=== PATIENT | male | born 1960 | race Caucasian/White ===

== ENCOUNTER → 2019-03-24 11:44 | Outpatient (CLI) | payer OTHER, SELFPAY ==
--- NOTE | 2019-03-24 11:58 | XR_ITS ---
XR KUB HISTORY: ITS.REASON: LT FLANK PAIN,H/O RENAL CALCULI,URINARY HESITANCY ORDERING PHYSICIAN: Marisol Goodwin APRN PATIENT AGE: 58 years COMPARISON: None FINDINGS: There is a 6 mm calcific density overlying the mid polar region of the right kidney. A 5 mm calcific density is noted to the left of the L4 transverse process consistent with a ureteral calculus. There are multiple pelvic calcifications consistent with phleboliths. Bowel gas pattern is nonspecific. IMPRESSION: 1. Right nephrolithiasis. 2. Suspected 5 mm left ureteral stone at the L4 level
[2019-03-24 12:18] LABS: Basophils % 0.4 % (0.1-2.0); Eosinophils % 0.3 % (0.1-12.0); Hematocrit 46.4 % (42.0-52.0); Hemoglobin 15.1 g/dL (14.1-18.0); Lymphocytes # 0.9 K/mm3 (0.7-4.5); Lymphocytes % 7.8 % (10-50); Mean Corpuscular HGB Conc 32.5 g/dL (31.8-35.4); Mean Corpuscular Hemoglobin 30.1 pg (27.0-31.2); Mean Corpuscular Volume 92.7 fl (80-94); Mean Platelet Volume 7.5 fl (7.4-10.4); Monocytes # 0.5 K/mm3 (0.1-1.0); Monocytes % 4.7 % (1.7-9.3); Neutrophils % 86.8 % (37.0-80.0); Platelet Count 198 K/mm3 (142-424); Red Blood Count 5.01 M/mm3 (4.60-6.20); White Blood Count 11.5 K/mm3 (4.8-10.8)
[2019-03-24 12:20] LABS: MANUAL DIFFERENTIAL MANUAL DIFFERENTIAL (MANUAL DIFF)
[2019-03-24 13:19] LABS: Alanine Aminotransferase 23 U/L (12-78); Albumin Level 3.9 gm/dL (3.4-5.0); Albumin/Globulin Ratio 1.4 (1.1-1.8); Alkaline Phosphatase 77 U/L (46-116); Anion Gap 10.6 mEq/L (5-15); Aspartate Amino Transferase 17 U/L (15-37); Bilirubin,Total 0.5 mg/dL (0.2-1.0); Blood Urea Nitrogen 23 mg/dL (7-18); Calcium 8.9 mg/dL (8.5-10.1); Carbon Dioxide 28 mmol/L (21.0-32.0); Chloride 104 mmol/L (98-107); Creatinine,Serum 1.05 mg/dL (0.70-1.30); Estimated Glomerular Filt Rate 73 ml/min (>60); GFR (African American) 88 ML/MIN (>60); Globulin 2.8 gm/dl (1.3-3.2); Glucose 108 mg/dL (74-106); Potassium 4.6 mmoL/L (3.5-5.1); Sodium 138 mmol/L (136-145); Total Protein,Serum 6.7 gm/dL (6.4-8.2)
[2019-03-24 16:31] LABS: Eosinophils % 1 % (0-3); Lymphocytes % 2 % (10-50); Monocytes % 3 % (2-9); Neutrophils % 93 % (42-76); Platelet Estimate Normal; RBC Morphology Normal; Total Cells Counted 100
== END ==
PROVIDERS: PCP Nurse Practitioner Family; Visit Provider Nurse Practitioner Family
DX: R10.9 Unspecified abdominal pain (principal); R39.11 Hesitancy of micturition; Z87.442 Personal history of urinary calculi
CPT/HCPCS: 36415; 74018; 80053; 85007; 85025

== ENCOUNTER → 2019-04-12 12:02 | Outpatient (CLI) | payer OTHER, SELFPAY ==
--- NOTE | 2019-04-12 12:06 | XR_ITS ---
XR kidney stone ORDERING PHYSICIAN: Dale Guerin MD PATIENT AGE: 58 years COMPARISON: 03/26/2019. FINDINGS: Again seen is the punctate stone overlying the right renal shadow. There is a 2 mm calcification at the lateral left mid abdomen which is not related to the ureter area or the left kidney and could be a small fecalith. There are stable pelvic calcifications suggesting phleboliths. The small left ureteral stone overlying the left L4 transverse process is no longer visualized. Bowel gas pattern, soft tissue outlines and osseous structures are stable. IMPRESSION: Right renal stones. Pelvic phleboliths. Prior left ureteral stone is no longer visualized. 10 mm stable left iliac sclerotic density, possible bone island.
== END ==
PROVIDERS: PCP Nurse Practitioner Family; Visit Provider Urology
DX: N20.0 Calculus of kidney (principal)
CPT/HCPCS: 74018

== ENCOUNTER → 2019-09-20 13:33 | Outpatient (CLI) | payer OTHER, SELFPAY ==
--- NOTE | 2019-09-20 13:37 | XR_ITS ---
PROCEDURE: XR KUB CLINICAL INDICATION: kidney stone Kidney stones follow-up COMPARISON: from 04/12/2019 FINDINGS: There are 2 stones overlying the mid aspect of the right kidney at 3 mm each unchanged. Multiple pelvic phleboliths are present. There is a mild amount of retained colonic feces. There are degenerative changes in the lumbar spine with facet arthritic changes at L4-L5 and S1 with spina bifida occulta of L5. Mild osteoarthritis involves the hips. IMPRESSION: No change right nephrolithiasis Dictated by: Osman Vang MD 09/20/2019 15:33 Electronically signed by Osman Vang MD in [place] 09/20/2019 15:33
== END ==
PROVIDERS: PCP Nurse Practitioner Family; Visit Provider Urology
DX: N20.0 Calculus of kidney (principal)
CPT/HCPCS: 74018

== ENCOUNTER → 2020-03-02 10:28 | Outpatient (CLI) | payer OTHER, SELFPAY ==
[2020-03-02 11:11] LABS: Basophils # 0.1 K/mm3 (0-0.2); Basophils % 0.8 % (0.1-2.0); Eosinophils # 0.2 K/mm3 (0.0-0.4); Eosinophils % 2.3 % (0.1-12.0); Hematocrit 47.3 % (42.0-52.0); Hemoglobin 15.5 g/dL (14.1-18.0); Lymphocytes # 1.7 K/mm3 (0.7-4.5); Lymphocytes % 18.6 % (10-50); Mean Corpuscular HGB Conc 32.9 g/dL (31.8-35.4); Mean Corpuscular Hemoglobin 31.1 pg (27.0-31.2); Mean Corpuscular Volume 94.8 fl (80-94); Mean Platelet Volume 8.1 fl (7.4-10.4); Monocytes # 0.7 K/mm3 (0.1-1.0); Monocytes % 7.7 % (1.7-9.3); Neutrophils # 6.5 K/mm3 (1.8-7.8); Neutrophils % 70.6 % (37.0-80.0); Platelet Count 225 K/mm3 (142-424); Red Blood Count 4.99 M/mm3 (4.60-6.20); Red Cell Distribution Width 13.6 % (11.5-17.5); White Blood Count 9.2 K/mm3 (4.8-10.8)
[2020-03-02 12:44] LABS: Alanine Aminotransferase 18 U/L (12-78); Albumin Level 4.6 g/dl (3.5-5.0); Albumin/Globulin Ratio 1.6 (1.1-1.8); Alkaline Phosphatase 77 U/L (38-126); Amylase 37 U/L (30-110); Anion Gap 9.6 mEq/L (5-15); Aspartate Amino Transferase 25 U/L (17-59); Bilirubin,Total 0.4 mg/dl (0.2-1.3); Blood Urea Nitrogen 28 mg/dl (9-20); Calcium 9.8 mg/dl (8.4-10.2); Carbon Dioxide 31 mmol/L (22.0-30.0); Chloride 99 mmol/L (98-107); Chol/HDL Ratio 3.5 (1-3.5); Cholesterol 152 mg/dl (140-200); Estimated Glomerular Filt Rate 87 ml/min (>60); GFR (African American) 105 ML/MIN (>60); Globulin 2.8 g/dL (1.3-3.2); Glucose 98 mg/dl (74-100); HDL Cholesterol 44 mg/dl (40-60); Lipase 48 U/L (23-300); Magnesium 2.2 mg/dl (1.6-2.3); Potassium 4.6 mmoL/L (3.5-5.1); Sodium 135 mmol/L (136-145); Total Protein,Serum 7.4 g/dl (6.3-8.2); Triglycerides 173 mg/dl (30-150); VLDL Cholesterol 35 mg/dL (0-40)
[2020-03-02 12:55] LABS: Direct LDL Cholesterol 105.79 mg/dL (100-129)
[2020-03-02 12:56] LABS: Troponin I < 0.01 ng/ml (0.00-0.034)
== END ==
PROVIDERS: Visit Provider Nurse Practitioner Family
DX: R07.9 Chest pain, unspecified (principal); R10.13 Epigastric pain; K21.9 Gastro-esophageal reflux disease without esophagitis
CPT/HCPCS: 36415; 80053; 80061; 82150; 83690; 83735; 84484; 85025

== ENCOUNTER → 2020-03-07 07:56 | Outpatient (CLI) | payer OTHER, SELFPAY ==
--- NOTE | 2020-03-07 10:05 | US_ITS ---
PROCEDURE: US ABDOMEN LIMITED CLINICAL INDICATION: DYSPEPSIA Upper abdominal pain, pressure, back pain, reflux [facility] con from 03/26/2019 FINDINGS: PANCREAS: Unremarkable. No obvious mass or abnormal fluid collection. No ductal dilatation LIVER: No focal liver lesions demonstrated. Homogeneous echogenicity. No intrahepatic biliary ductal dilatation evident. There is appropriate direction of blood flow within a non dilated portal vein RIGHT KIDNEY: Suspect a small stone in the mid aspect of the right kidney GALLBLADDER: No gallstones, gallbladder wall thickening, pericholecystic fluid, or biliary dilatation. There does appear to be a small polyp along the anterior wall of the gallbladder at 2-3 mm. IMPRESSION: 1. Small gallbladder polyp otherwise negative gallbladder ultrasound. 2. Right nephrolithiasis without hydronephrosis Dictated by: Osman Vang MD 03/07/2020 12:54 Electronically signed by Osman Vang MD in [place] 03/07/2020 12:54
== END ==
PROVIDERS: PCP Nurse Practitioner Family; Visit Provider Nurse Practitioner Family
DX: R10.13 Epigastric pain (principal)
CPT/HCPCS: 76705

== ENCOUNTER → 2020-03-15 07:12 | Outpatient (CLI) | payer OTHER, SELFPAY ==
--- NOTE | 2020-03-15 07:15 | CA_ITS ---
APPROVED REPORT EXAM: Comprehensive 2D, Doppler, and color-flow Echocardiogram Aviation Ordnance Officer: Cassie Horton RT(R) Ht: 6 ft 6 in Wt: 210lbs BSA: 2.31 BP: 119/88 mmHg Indications: CP, smoking, Palpitations, SALAZAR 2D Dimensions LVOT 2.01 cm (M/F) 1.5-2.5 M-Mode Dimensions RVDd 1.97 cm (0.9-2.6) LVDd 4.40 cm (3.5-5.7) LVDs 3.30 cm (3.5-5.7) IVSd 1.02 cm (0.6-1.1) PWd 0.91 cm (0.6-1.1) EF (Teich) 49.70% FS 25.00% EDV (Teich) 87.70 mL ESV (Teich) 44.10 mL LV Diastology E/A Ratio 1.36 Mitral Valve MV A Velocity 45.00 (40-130 cm/s) Left Ventricle Left atrium is normal size, left ventricle is normal size, there is no concentric left ventricular hypertrophy, visually estimated ejection fraction 55% with no regional wall motion abnormality, diastolic parameters are within normal range. Right Ventricle Right atrium and right ventricular normal size and contractility. Aortic Valve Aortic valve is grossly normal, there is no aortic stenosis or aortic insufficiency. Mitral Valve Mitral valve is grossly normal, there is trace mitral regurgitation. Tricuspid Valve Tricuspid valve is grossly normal, there is mild tricuspid regurgitation, tricuspid regurgitation jet velocity is inadequate for calculation of the right ventricular systolic pressure. Pulmonic Valve Pulmonic valve poorly visualized. Great Vessels Aortic root is normal size. Pericardium No significant pericardial effusion noted. Conclusion 1. Normal left ventricular size, preserved left ventricular systolic function, visually estimated ejection fraction 55% with no regional wall motion abnormality, diastolic parameters are within normal range. 2. Trace mitral and mild tricuspid regurgitation. 3. Inferior vena cava is normal size with normal inspiratory collapse. Electronically signed by : Erick Severino, 03/16/2020 09:51:18
--- NOTE | 2020-03-15 07:22 | NM_ITS ---
APPROVED REPORT Exam: Nuclear Stress Test Indication: burning in his chest..fatigue..short of breath Patient Location: Outpatient Stress Tech: Lanie Michael MA Tech:Chinyere Talamantes INGEQuin RT(R)(N) Ht: 6 ft 6 in Wt: 210 lbs HR: 65 bpm BP: 154/92 mmHg BSA: 2.31 m2 BMI: 24.2 History: burning in his chest..fatigue..short of breath Procedure: Patient exercised on Vinicius protocol 8.30 minutes and sec, resting heart rate 65 bpm, resting blood pressure 154/92 mmHg, with exercise maximum heart rate achived was 148 bpm which is Greater than 85 % of the maximum predicted heart rate and blood pressure was 208/84 mmHg. Patient denied any complaint of chest pain. Patient has Good exercise capacity, achieved 10.1 METs of workload on treadmill, the blood pressure response to exercise was Hypertensive. Electrocardiogram Resting electrocardiogram showed sinus rhythm, with exercise there is less than 1.[address] segment depression noted from the baseline EKG. The EKG portion of the exercise Myoview is negative for ischemia. Cardiac Stress and Resting SPECT Images: Cardiac Stress and Resting SPECT images were obtained using technetium 99m Myoview 32.2 mCi stress and 10.76 mCi at rest. Gated SPECT for analysis of segmental wall motion and calculation of the ejection fraction also done. Cardiac stress and resting SPECT images show a fixed defect involving the inferior wall with normal contracted gated SPECT is likely secondary to soft tissue attenuation, no reversible ischemia seen. Computer derived ejection fraction is 61% with no regional wall motion abnormality, right ventricle is normal size and contractility. Conclusion: 1. The EKG portion of the exercise Myoview is negative for ischemia, patient has good exercise capacity achieved 10.1 mets of workload on treadmill, the blood pressure response to exercise was hypertensive, there was no exercise-induced chest discomfort. 2. No scintigraphic evidence of reversible ischemia seen at this level of exercise, computer derived ejection fraction 61% with no regional wall motion abnormality, right ventricle is normal size and contractility. 3. Likely normal exercise Myoview study. Electronically signed by : Erick Severino, 03/15/2020 15:46:08
--- NOTE | 2020-03-15 09:00 | CA_ITS ---
APPROVED REPORT Exam: Exercise Treadmill Technologist: Lanie Rodriguez, Ht: 6 ft 6 in Wt: 210 lbs BSA: 2.31 m2 Indications: CP/SOA Medical History Medical History: Smoking Medications: Sumatriptan,,,,, Cardiac Risk Factors: Smoking, FHX of CAD Stress Test Details Test: Vinicius HR Resting HR: 69 bpm Max Heart Rate (APMHR): 162 bpm Max HR Achieved: 174 bpm Target HR (85% APMHR): 137 bpm % of APMHR: 107 BP Resting BP: 154/92 mmHg Max BP: 208/84 mmHg ECG Clinical Exercise duration: 08:31 min Highest Stage Achieved: Exercise capacity: 10.1 METs Stress ECG Conclusion exercised 8:30 on Vinicius protocol no symptoms or arrhythmias allowing for motion artifact the ST response to exercise is within normal conclusion: normal GXT, myoview images reported separately Test Summary Stage 3 01:00 14.0 3.4 136 . 208/ 84 . . REST . . . . . . . Sitting REST 05:14 0.0 0.0 69 . 154/ 92 . . Stage 1 01:00 10.0 1.7 82 . . . . Stage 1 02:00 10.0 1.7 96 . . . . Stage 1 03:00 10.0 1.7 102 . 196/ 80 . . Stage 2 01:00 12.0 2.5 112 . . . . Stage 2 02:00 12.0 2.5 121 . . . . Stage 2 03:00 12.0 2.5 124 . . . . Stage 3 01:00 14.0 3.4 136 . 208/ 84 . . Stage 3 . . . . . . . Cardiolite injected Stage 3 02:00 14.0 3.4 . . 208/ 84 . . Stage 3 02:31 14.0 3.4 . . 208/ 84 . Stop exercise at 08:31 RECOVERY 01:00 0.0 0.0 87 . . . . RECOVERY 02:00 0.0 0.0 117 . . . . RECOVERY 03:00 0.0 0.0 113 . 158/ 87 . . RECOVERY 04:00 0.0 0.0 106 . 158/ 87 . . RECOVERY 05:00 0.0 0.0 103 . 158/ 87 . . RECOVERY 05:53 0.0 0.0 103 . 158/ 87 . . Electronically signed by : Erick Severino, 03/15/2020 15:42:33
== END ==
PROVIDERS: PCP Nurse Practitioner Family; Visit Provider Urology
DX: R07.9 Chest pain, unspecified (principal); R00.2 Palpitations; R42 Dizziness and giddiness; R06.00 Dyspnea, unspecified; R60.0 Localized edema; K21.9 Gastro-esophageal reflux disease without esophagitis; F17.200 Nicotine dependence, unspecified, uncomplicated; Z82.49 Family history of ischemic heart disease and other diseases of the circulatory system
CPT/HCPCS: 78452; 93017; 93306; A9502

== ENCOUNTER → 2021-04-20 07:11 | Outpatient (CLI) | payer OTHER, SELFPAY ==
[2021-04-20 07:39] LABS: Basophils # 0.1 K/mm3 (0-0.2); Basophils % 0.4 % (0.1-2.0); Eosinophils # 0.1 K/mm3 (0.0-0.4); Eosinophils % 0.4 % (0.1-12.0); Hematocrit 48.5 % (42.0-52.0); Lymphocytes # 1.8 K/mm3 (0.7-4.5); Lymphocytes % 12.8 % (10-50); Mean Corpuscular HGB Conc 32.9 g/dL (31.8-35.4); Mean Corpuscular Hemoglobin 31.9 pg (27.0-31.2); Mean Corpuscular Volume 96.9 fl (80-94); Mean Platelet Volume 7.6 fl (7.4-10.4); Monocytes # 0.8 K/mm3 (0.1-1.0); Monocytes % 5.8 % (1.7-9.3); Neutrophils # 11.4 K/mm3 (1.8-7.8); Neutrophils % 80.7 % (37.0-80.0); Platelet Count 236 K/mm3 (142-424); Red Blood Count 5.01 M/mm3 (4.60-6.20); Red Cell Distribution Width 14.3 % (11.5-17.5); White Blood Count 14.1 K/mm3 (4.8-10.8)
[2021-04-20 08:39] LABS: Anion Gap 11.4 mEq/L (5-15); Blood Urea Nitrogen 25 mg/dl (9-20); Calcium 9.6 mg/dl (8.4-10.2); Carbon Dioxide 30 mmol/L (22.0-30.0); Chloride 102 mmol/L (98-107); Estimated Glomerular Filt Rate 86 ml/min (>60); GFR (African American) 105 ML/MIN (>60); Glucose 83 mg/dl (74-100); Potassium 4.4 mmoL/L (3.5-5.1); Sodium 139 mmol/L (136-145)
== END ==
PROVIDERS: Visit Provider Surgery
DX: Z01.812 Encounter for preprocedural laboratory examination (principal); Z11.52 Encounter for screening for COVID-19; K40.90 Unilateral inguinal hernia, without obstruction or gangrene, not specified as recurrent
CPT/HCPCS: 36415; 80048; 85025; U0003

== ENCOUNTER 2021-04-23 07:07 | Day surgery (SDC) | payer OTHER, SELFPAY ==
[2021-04-16 17:03] VITALS: BMI 24.3
[2021-04-23] VITALS (10 sets, daily range): BP systolic 112–178; BP diastolic 68–106; PULSE 70–87; RESP 11–20; TEMP 36.7–38; O2SAT 93–99
--- NOTE | 2021-04-23 09:35 | HMH.ANESCL ---
[facility] Anesthesia Checklist - Structural Data Admitted From: Home Planned Operative Procedure/s: r inguinal hernia rpr Consent for Planned Operative Procedure(s) Verified: Yes - Additional verifications Anesthesia Reactions: No Hx Blood Transfusions: No Blood Transfusion Reaction: No - Airway Assessment C-Spine Mobility Assessed: Yes TMJ Mobility Assessed: Yes Dentition: Poor Dentition - Neurological Assessment Level of Consciousness: Awake, Alert, Appropriate - Anesthesia Plan Anesthesia Risk discussed: Yes Anesthesia Plan: Verified ASA Class: II Anesthesia Type: General [facility] History I have reviewed the patient's past medical history: Yes Medical History: Reports:: Gastroesophageal Reflux Disease(GERD), Migraine Denies:: Cancer, Diabetes Mellitus Type 1, Diabetes Mellitus Type 2, Internal Pacemaker, MRSA, Seizures *Have you ever received a pneumonia vaccine?: No *Have you received a flu vaccine this season?: No Other Medical History: Reports: Arthritis. Denies: Blood Transfusion Reaction Anesthesia experience/problems:: none Other Surgeries: Yes: Colonoscopy, Other. No: Pacemaker Amputation: No Fractures: No - *Social History Last grade of school completed: High school graduate Smoking Status: Current every day smoker Tobacco Type: cigarettes # Packs/Day (cigarettes): 1 #Yrs smoked (if former smoker): 30 Alcohol Intake: never Substance Use Type: denies use *Occupational Status:: employed Housing: house Household Members: spouse *Travel in the last 8 weeks: None Family Hx:: Heart Attack, Coronary Artery Disease
--- NOTE | 2021-04-23 10:32 | P.OP_ITS ---
Date of procedure: 04/23/21 Pre-op Diagnosis:: Right inguinal hernia Post-op Diagnosis:: Same Procedure performed:: Open repair of right inguinal hernia with placement of Bard prefix mesh, size large Surgeon:: Wililan Schuster MD MICROFILM OPERATOR:: Liat Steele Anesthesia: GETA Estimated blood loss (mL): 5 Clinical Note:: Patient is a 60-year-old male from [facility] who works in [place] at [employer] a referred by Denise Goodwin for right inguinal hernia. He states that he has had a swelling in the right groin area for about 5 or 6 years. When this initially occurred he felt a pop. Symptoms have been progressive and worsened. He has some mild tenderness. He does a lot of heavy lifting at work. He was found to have a reducible visible right inguinal hernia with no evidence of any hernia on the left. The options were discussed with the patient. He would like to pursue repair as soon as possible. Operative findings:: He is a small to moderate indirect hernia Operative note:: Patient was taken to the operating room. He was given preoperative intravenous antibiotics. In the operating room he was placed in a supine position. General anesthesia was induced. Hurst catheter was placed. Lower abdomen and perineum were prepped and draped in the standard surgical fashion. Oblique incision was made in the right inguinal area superior to landmarks identifying the inguinal canal. Dissection was carried down to subcutaneous tissues and Tashia's fascia using electrocautery. External oblique muscle was cleaned free. External oblique muscle was opened along the length of its fibers. Underlying cord structures were identified. He had very attenuated ilioinguinal nerve. The cord structures were dissected free from the floor of the inguinal canal and encircled with a [place] drain. Dissection was carried out of the cord structures. He was noted to have hernia sac medially and proximally. This was dissected free from the cord structures. It was opened and there was some fatty contents which were easily reduced. The hernia sac was then closed with a running 3-0 Vicryl suture. There was a cord lipoma as well and this was dissected free from the cord and sent as hernia contents. A large sized Bard prefix mesh plug was inserted into the defect near the medial internal ring at the site of the defect. It was secured to the shelving edge of the inguinal ligament and transversalis fascia with several interrupted 2-0 Vicryl sutures. The onlay mesh was then inserted into the inguinal floor. It was secured to Scott's ligament and to the shelving edge of the inguinal ligament with a running 2-0 PDS suture. It was secured superiorly medially to the transversalis fascia with interrupted 2-0 PDS horizontal mattress sutures. The 2 tails of the mesh were secured to 1 another with a couple of 2-0 PDS sutures to reconstruct the internal ring. Cord structures were then returned to the normal anatomic position. Irrigation was performed. There was good hemostasis. Local anesthetic was infiltrated deeply as well as for an inguinal nerve block. Extra oblique muscle was closed over the cord structures with running 2-0 Vicryl suture. Tashia's fascia was closed with running 2-0 Vicryl. Skin was closed with running 3-0 strata fix. Steri-Strips and dressings were applied. Condition: stable Disposition: PACU Specimens:: Hernia contents . Complications:: None immediately apparent
--- NOTE | 2021-04-23 10:40 | HMH.ANESI ---
[facility] Anesthesia Record Part I Intake, IV Amount: 600 Estimated blood loss (mL): 5 Urine output (mL): 0 Blood Pressure: 155/88 SaO2: 93 Pulse Rate: 85 Respiratory Rate: 11 Temperature: 98.1 F Patient is:: Drowsy, Oral/Nasal airway Stable to PACU at:: 10:38
[2021-04-23 11:18] LABS: Microscopic,Cath URINE MICROSCOPIC (MICROSCOPIC)
[2021-04-23 11:23] LABS: Appearance,Urine/Cath CLEAR (Clear); Bilirubin,Cath Negative (Negative); Blood, Urine/Cath TRACE-I (Negative); Color,Urine/Cath YELLOW (Yellow); Glucose,Urine/Cath (UA) Negative (Negative); Ketones,Urine/Cath Negative (Negative); Leukocyte Esterase,Cath Negative (Negative); Nitrate,Cath Negative (Negative); Protein,Urine/Cath Negative (Negative); Specific Gravity, Urine/Cath <= 1.005 (1.005-1.030); Urobilinogen,Cath 0.2 EU/dl (0.2)
--- NOTE | 2021-04-24 15:20 | P.PN_ITS ---
[facility] Anesthesia Record Part II Discharge Time: 11:18 Destination: [facility] PACU nurse assessment reviewed?: Yes Patient Condition:: Good Anesthesia Complications:: None Swallowing reflex intact?: Yes Cyanosis?: No Blood Pressure: 116/72 Pulse Rate: 76 Temperature: 98.0 F Mental Status: Alert & Oriented Pain level:: 0 Nausea and/or vomitting:: None Intake, IV Amount: 1,500
[2021-04-24 15:21] VITALS: BP 116/72; PULSE 76; TEMP 36.7
== END 2021-04-23 11:45 | disposition home or self-care (01) ==
LOC: OR 07:09
PROVIDERS: PCP Nurse Practitioner Family; Visit Provider Surgery
PROC: (CPT 49505; principal; 2021-04-23 09:00)
DX: K40.90 Unilateral inguinal hernia, without obstruction or gangrene, not specified as recurrent (principal)
CPT/HCPCS: 49505; 81001; 96374; J2405

== ENCOUNTER 2021-09-20 16:04 | Emergency (ER) | payer OTHER, SELFPAY ==
[2021-09-20 17:31] VITALS: BP 165/93; PULSE 68; RESP 18; TEMP 36.6; O2SAT 97; BMI 24.5
--- NOTE | 2021-09-20 18:31 | HMH.EDUTC ---
[facility] Clinical Impression: Facial [place] Disposition: Home, Self-Care Condition on Discharge: Good Instructions: Boil Additional Instructions: Keep the affected area clean and dry. Follow up with your regular doctor. Take the antibiotics as directed and apply the topical antibiotics as directed. Apply warm wet compresses to the affected area three or four times per day. GO TO THE ER FOR ANY WORSENING SYMPTOMS Prescriptions: Sulfamethoxazole/Trimethoprim [Bactrim DS tablet] 1 each PO BID 10 Days #20 tab Transmission Status: Received by [facility] Mupirocin [Bactroban 2% Ointment 22gm tube] 1 applicatio TP TID 7 Days #1 gm Transmission Status: Received by [facility] cephALEXin [cephALEXin 500mg capsule] 500 mg PO Q6H 10 Days #40 cap Transmission Status: Received by [facility] Referrals: Marisol Goodwin APRN [Primary Care Provider] - Time of Disposition: 18:38 Medical Decision Making - Medical Records Medical records reviewed: No: I reviewed the patient's medical records. - Juan Luis Inquiry Pt receiving controlled substance: No Vital Signs: 09/20/21 17:31 09/20/21 18:51 Temperature 98 F 98 F Temperature Source Oral Pulse Rate 68 Pulse Rate [Left] 68 Respiratory Rate 18 18 Blood Pressure 165/93 H Blood Pressure [Right Arm] 165/93 H Blood Pressure Mean [Right Arm] 117 02 Sat by Pulse Oximetry 97 Orders (Tests/Meds): ED MEDICATIONS Discontinued Medications Generic Name Dose Route Start Last Admin Trade Name Freq PRN Reason Stop Dose Admin Ceftriaxone Sodium 1 gm 09/20/21 18:06 09/20/21 18:15 Ceftriaxone 1gm Vial IM 09/20/21 18:07 1 gm ONCE ONE Administration Lidocaine HCl 0 ml 09/20/21 18:06 09/20/21 18:15 Lidocaine 1% 5ml Pf Vial IM 09/20/21 18:07 2 ml ONCE ONE Administration ORDERS Category Date Time Status Wound Culture and Gram Stain Stat Micro 09/19/21 18:51 Results [facility] [place] - General Stated complaint: spot on face Time Seen by Provider: 09/20/21 18:31 Mode of Arrival: Ambulatory Source of Information: Patient Limitations: No Limitations Description of Symptoms (Recalled from Triage Doc. by RN): pt c/o a bump on his R cheeck. the area is red and swollen. pt states it has been ongoing x2 weeks. HEENT Symptoms (Recalled from RN notes): Yes (abcess on the R cheek) Resp Symptoms (Recalled from RN notes): No Skin Symptoms (Recalled from RN notes): No MS Symptoms (Recalled from RN notes): No Functional Status (Recalled from RN notes): wnl - History of Present Illness Provider Complaint: He states that he has a swollen red area on the right side of his face. This lesion began about 2 weeks ago. He denies any fever or chills, but states that the site is very tender to touch. He is not diabetic. - Related Data Home Medications Medication Instructions Recorded Confirmed sumatriptan succinate 100 mg tablet 100 mg PO Q2H PRN tab 03/07/20 07/01/21 dexlansoprazole 60 mg 60 mg PO DAILY cap 04/05/20 07/01/21 capsule,biphase delayed release Naproxen Sodium [Aleve 220mg Tab] 220 mg PO NEEDED PRN 04/23/21 07/01/21 Previous Rx's Medication Instructions Recorded Mupirocin [Bactroban 2% Ointment 1 applicatio TP TID 7 Days #1 gm 09/20/21 22gm tube] Sulfamethoxazole/Trimethoprim 1 each PO BID 10 Days #20 tab 09/20/21 [Bactrim DS tablet] cephALEXin [cephALEXin 500mg 500 mg PO Q6H 10 Days #40 cap 09/20/21 capsule] Allergies Allergy/AdvReac Type Severity Reaction Status Date / Time No Known Allergies Allergy Verified 07/01/21 09:50 - Worker's Comp Is this a Worker's Comp case?: No [facility] History - Hepatitis A Screen Drug use history?: No High risk sexual behaviors?: No History of sexually transmitted infection?: No Currently employed?: No Childcare worker?: No Do you have indoor plumbing?: Yes Do you have electricity?: Yes Attestation statement:: Manpreet fuller
[2021-09-20 18:51] VITALS: BP 165/93; PULSE 68; RESP 18; TEMP 36.6
== END 2021-09-20 19:02 | disposition home or self-care (01) ==
PROVIDERS: Emergency Provider Nurse Practitioner Family; PCP Nurse Practitioner Family
DX: L02.01 Cutaneous abscess of face (principal); K21.9 Gastro-esophageal reflux disease without esophagitis; G43.709 Chronic migraine without aura, not intractable, without status migrainosus; F17.210 Nicotine dependence, cigarettes, uncomplicated
CPT/HCPCS: 10060; 87070; 87077; 87186; 87205; 99202; G0463

== ENCOUNTER → 2022-04-17 15:18 | Outpatient (CLI) | payer OTHER, SELFPAY ==
--- NOTE | 2022-04-17 15:23 | XR_ITS ---
FINAL REPORT CLINICAL HISTORY: LT KNEE PAIN FINDINGS: LEFT KNEE Three views of the left knee were obtained. There is no acute fracture or dislocation. Visualized joint spaces are normally aligned. There is no joint effusion. There is a chronic calcification at the tibial tubercle. IMPRESSION: No acute bony abnormality. Reviewed, Interpreted and Dictated by Willian Kaminski III, MD Transcribed by Zoë Ledbetter Authenticated and . [facility]
== END ==
PROVIDERS: PCP Nurse Practitioner Family; Visit Provider Nurse Practitioner Family
DX: M25.562 Pain in left knee (principal)
CPT/HCPCS: 73562

== ENCOUNTER 2022-05-07 01:13 | Emergency (ER) | payer OTHER, SELFPAY ==
[2022-05-07 01:17] VITALS: BP 145/92; PULSE 68; RESP 16; TEMP 36.8; O2SAT 99; BMI 23.1
--- NOTE | 2022-05-07 01:24 | ECG_ITS ---
APPROVED REPORT Exam: Resting ECG HR:74 bpm ECG Measurements Heart Rate 74 AXES NV 162 P 22 QRSd 89 QRS 87 QT 382 T 61 QTc 409 Conclusion SINUS RHYTHM WITH SINUS ARRHYTHMIA NORMAL ECG UNCONFIRMED REPORT Electronically signed by : Ron Aguirre MD 05/07/2022 21:01:32
[2022-05-07 01:38] VITALS: BMI 23.1
--- NOTE | 2022-05-07 01:39 | XR_ITS ---
PROCEDURE INFORMATION: Exam: XR Chest Exam date and time: 05/07/2022 1:49 AM Age: 61 years old Clinical indication: Other: Posterior back/chest pain TECHNIQUE: Imaging protocol: Radiologic exam of the chest. Views: 2 views. COMPARISON: DX XR KUB 09/20/2019 1:46 PM FINDINGS: Lungs: Hyperinflated but clear lungs. Pleural spaces: Unremarkable. No pleural effusion. No pneumothorax. Heart/Mediastinum: Unremarkable. No cardiomegaly. Bones/joints: Unremarkable. IMPRESSION: Hyperinflated but clear lungs. No acute abnormality.
--- NOTE | 2022-05-07 01:43 | CT_ITS ---
PROCEDURE INFORMATION: Exam: CT Thoracic Spine Without Contrast Exam date and time: 05/07/2022 2:02 AM Age: 61 years old Clinical indication: Pain in thoracic spine; Patient HX: Back pain yesterday; Additional info: Back pain with urine incont. TECHNIQUE: Imaging protocol: Computed tomography of the thoracic spine without contrast. Radiation optimization: All CT scans at this facility use at least one of these dose optimization techniques: automated exposure control; mA and/or kV adjustment per patient size (includes targeted exams where dose is matched to clinical indication); or iterative reconstruction. COMPARISON: CT CERVICAL SPINE WO CON 05/07/2022 1:57 AM FINDINGS: Bones/joints: Vertebral body heights are normal throughout. There is no evidence of acute fracture. There is mild costovertebral degenerative change. Discs/Spinal canal/Neural foramina: Mild multilevel degenerative disc disease is noted. Spinal canal and neural foramina are patent. Soft tissues: Paraspinous soft tissues are normal in thickness. Mediastinum: Features of old granulomatous disease are noted in the chest with pulmonary and mediastinal granulomas. Adrenal glands: Normal adrenals. IMPRESSION: Mild thoracic degenerative change. Patent spinal canal. No acute fracture or destructive lesion.
--- NOTE | 2022-05-07 01:43 | CT_ITS ---
PROCEDURE INFORMATION: Exam: CT Cervical Spine Without Contrast Exam date and time: 05/07/2022 1:57 AM Age: 61 years old Clinical indication: Neck pain; Prior surgery; Patient HX: Severe back pain yesterday; Additional info: Back pain with urine incont. TECHNIQUE: Imaging protocol: Computed tomography of the cervical spine without contrast. Radiation optimization: All CT scans at this facility use at least one of these dose optimization techniques: automated exposure control; mA and/or kV adjustment per patient size (includes targeted exams where dose is matched to clinical indication); or iterative reconstruction. COMPARISON: OT TUIS NUC THYROID [id number] 09/06/2015 1:10 PM FINDINGS: Bones/joints: There has been prior anterior discectomy with interbody fusion and plate and screw fixation spanning C4-C7. There is no evidence of hardware failure. No evidence of acute fracture. Discs/Spinal canal/Neural foramina: Interbody bone graft appears well incorporated. There is mild degenerative disc disease at C4-C5 with right uncovertebral hypertrophy and right facet arthropathy. This results in right neural foraminal stenosis. Facet arthropathy is noted bilaterally at C7-T1. No canal or foraminal stenosis at C7-T1. Lungs: Lung apices are normal. Thyroid: Homogeneous thyroid parenchyma. Lymph nodes: Scattered non pathologically enlarged cervical lymph nodes are noted. Soft tissues: Unremarkable. IMPRESSION: No acute cervical spine abnormality. Prior long segment fusion without evidence of hardware failure. There is right neural foraminal stenosis at C4-C5
--- NOTE | 2022-05-07 01:43 | CT_ITS ---
PROCEDURE INFORMATION: Exam: CT Lumbar Spine Without Contrast Exam date and time: 05/07/2022 2:05 AM Age: 61 years old Clinical indication: Low back pain; Additional info: Back pain with urine incont. TECHNIQUE: Imaging protocol: Computed tomography of the lumbar spine without contrast. Radiation optimization: All CT scans at this facility use at least one of these dose optimization techniques: automated exposure control; mA and/or kV adjustment per patient size (includes targeted exams where dose is matched to clinical indication); or iterative reconstruction. COMPARISON: CT THORACIC SPINE WO CON 05/07/2022 2:02 AM FINDINGS: Bones/joints: There are 5 lumbar type vertebral bodies. There is no evidence of acute fracture or destructive lesion. Bilateral sacroiliac osteoarthritis appears symmetric. Discs/Spinal canal/Neural foramina: There is prominent facet arthropathy at L4-L5 with mild L4 on 5 anterolisthesis. Patent neural foramina and spinal canal. There is degenerative disc disease and right facet arthropathy at L5-S1 without canal or foraminal stenosis. Kidneys and ureters: There is a calculus demonstrated in the right proximal ureter with mild right hydronephrosis. Vasculature: Mild calcification noted in the normal caliber abdominal aorta. Soft tissues: Unremarkable. IMPRESSION: 1. Lower lumbar facet arthropathy and degenerative disc disease. No canal or foraminal stenosis. No acute fracture or bony destructive change. 2. There is a proximal ureteral calculus on the right with mild right hydronephrosis.
[2022-05-07 01:47] LABS: Influenza A, PCR Not Detected (NotDetected); Influenza B, PCR Not Detected (NotDetected)
[2022-05-07 01:50] LABS: Basophils # 0.1 K/mm3 (0-0.2); Basophils % 0.9 % (0.1-2.0); Eosinophils # 0.3 K/mm3 (0.0-0.4); Eosinophils % 4.2 % (0.1-12.0); Hematocrit 46.1 % (42.0-52.0); Hemoglobin 15.7 g/dL (14.1-18.0); Lymphocytes # 1.7 K/mm3 (0.7-4.5); Lymphocytes % 26.2 % (10-50); Mean Corpuscular HGB Conc 34.1 g/dL (31.8-35.4); Mean Corpuscular Hemoglobin 32.4 pg (27.0-31.2); Mean Corpuscular Volume 95.1 fl (80-94); Mean Platelet Volume 7.8 fl (7.4-10.4); Monocytes # 0.6 K/mm3 (0.1-1.0); Monocytes % 9.2 % (1.7-9.3); Neutrophils # 3.8 K/mm3 (1.8-7.8); Neutrophils % 59.5 % (37.0-80.0); Platelet Count 187 K/mm3 (142-424); Red Blood Count 4.84 M/mm3 (4.60-6.20); Red Cell Distribution Width 13.2 % (11.5-17.5); White Blood Count 6.4 K/mm3 (4.8-10.8)
[2022-05-07 01:54] LABS: Chloride 101 mmol/L (98-107); Sodium 137 mmol/L (136-145)
[2022-05-07 01:56] LABS: Alanine Aminotransferase 21 U/L (12-78); Amylase 61 U/L (30-110); Aspartate Amino Transferase 34 U/L (17-59); Bilirubin,Unconjugated 0.3 mg/dL (0.0-1.1); Blood Urea Nitrogen 17 mg/dl (9-20); Creatinine Clearance Estimated 126 mL/min (50-200); Estimated Glomerular Filt Rate 99 ml/min (>60); GFR (African American) 119 ML/MIN (>60)
[2022-05-07 01:57] LABS: Albumin Level 4.3 g/dl (3.5-5.0); Alkaline Phosphatase 85 U/L (38-126); Bilirubin,Direct 0.1 mg/dl (0.0-0.4); Bilirubin,Indirect 0.3 mg/dL (0.0-0.9); Bilirubin,Total 0.4 mg/dl (0.2-1.3); Calcium 9.2 mg/dl (8.4-10.2); Carbon Dioxide 32 mmol/L (22.0-30.0); Glucose 129 mg/dl (74-100); Lipase 36 U/L (23-300)
--- NOTE | 2022-05-07 01:57 | CT_ITS ---
PROCEDURE INFORMATION: Exam: CT Abdomen And Pelvis With Contrast Exam date and time: 05/07/2022 2:11 AM Age: 61 years old Clinical indication: Abdominal pain; Patient HX: HX kidney stones TECHNIQUE: Imaging protocol: Computed tomography of the abdomen and pelvis with contrast. Radiation optimization: All CT scans at this facility use at least one of these dose optimization techniques: automated exposure control; mA and/or kV adjustment per patient size (includes targeted exams where dose is matched to clinical indication); or iterative reconstruction. Contrast material: ISOVUE; Contrast volume: 75 ml; Contrast route: IV; COMPARISON: ABDPELWO CT abdomen pelvis wo con 03/26/2019 8:37 PM FINDINGS: Liver: Normal. No mass. Gallbladder and bile ducts: Contracted postprandial gallbladder. Pancreas: Normal. No ductal dilation. Spleen: Normal. No splenomegaly. Adrenal glands: Normal. No mass. Kidneys and ureters: Kidneys enhance symmetrically. There is very mild dilation of the right proximal ureter. An elongate calculus or perhaps 2 adjacent stones in the proximal ureter noted. Stone measures 1.0 x 0.3 x 0.3 cm. There may be residual punctate intrarenal stones versus early calyceal contrast. Stomach and bowel: Postprandial stomach. Normal caliber small bowel. Normal colon. Appendix: Normal appendix is confirmed. Intraperitoneal space: Unremarkable. No free air. No significant fluid collection. Vasculature: Mild aortoiliac calcific atherosclerosis without aneurysm. Lymph nodes: Unremarkable. No enlarged lymph nodes. Urinary bladder: Unremarkable as visualized. Reproductive: Unremarkable as visualized. Bones/joints: There is lumbar degenerative disc and facet disease without canal or significant neural foraminal stenosis. Mild bilateral sacroiliac osteoarthritis. Soft tissues: Changes of prior right inguinal herniorrhaphy. IMPRESSION: There is mild right hydronephrosis caused by a an elongate calculus in the proximal ureter. There may be additional punctate intrarenal stones versus early calyceal contrast on this contrast-enhanced exam. No large residual stones are evident.
[2022-05-07 01:58] LABS: Lactic Acid 1.3 mmol/L (0.7-2.1)
[2022-05-07 02:05] LABS: Microscopic, Urine URINE MICROSCOPIC (MICROSCOPIC)
[2022-05-07 02:08] LABS: Appearance,Urine CLEAR (Clear); Bilirubin,Urine Negative (Negative); Blood, Urine 2+ (Negative); Color,Urine YELLOW (Yellow); Glucose,Urine (UA) Negative (Negative); Ketones,Urine Negative (Negative); Leukocyte Esterase,Urine Negative (Negative); Nitrate,Urine Negative (Negative); PH,Urine 6.5 (5.0-8.5); Protein,Urine Negative (Negative); Specific Gravity, Urine 1.015 (1.005-1.030); Urobilinogen,Urine 0.2 EU/dl (0.2)
[2022-05-07 02:22] LABS: Troponin I < 0.01 ng/ml (0.00-0.034)
[2022-05-07 02:22] LABS: Bacteria,Urine Trace /lpf
[2022-05-07 02:23] LABS: Erythrocyte Sedimentation Rate 10 mm/hr (0-20)
[2022-05-07 02:24] LABS: Coronavirus 19, PCR Detected (NotDetected)
[2022-05-07 02:30] VITALS: BP 167/93; PULSE 70; RESP 15; O2SAT 98
--- NOTE | 2022-05-07 02:45 | PC.NURSE ---
PT AWARE OF BEING POSITIVE FOR COVID. PT PLACED IN [place] PRECAUTIONS. NO COMPLAINTS VOICED. NO ACUTE DISTRESS NOTED.
[2022-05-07 02:48] LABS: Procalcitonin 0.052 ng/mL (0.0-2.0)
--- NOTE | 2022-05-07 03:29 | HMH.EDNVD ---
ED Disposition Clinical Impression: Renal colic on right side, COVID-19 Disposition: Home, Self-Care Condition on Discharge: Good Instructions: DI for Kidney Stones, DI for COVID-19 (Suspected or Confirmed ) Additional Instructions: will refer to urology Prescriptions: Tamsulosin HCl [Flomax 0.4mg capsule] 0.4 mg PO HS #12 cap Transmission Status: Pending to [facility] Referrals: Marisol Goodwin APRN [Primary Care Provider] - - Critical Care Critical Care Time: No Attestation: On 05/07/22, the high probability of a clinically significant, sudden or life threatening deterioration of the following system(s) required my full and direct attention, intervention and personal management. The time I documented below is in addition to time spent performing reported procedures but includes the following listed in this critical care notation. Medical Decision Making - Medical Records Medical records reviewed: Yes: I reviewed the patient's medical records. - Juan Luis Inquiry Pt receiving controlled substance: No Vital Signs: 05/07/22 01:17 05/07/22 02:30 Temperature 98.3 F Temperature Source Oral Pulse Rate 70 Pulse Rate [Left Radial] 68 Respiratory Rate 16 15 Blood Pressure 167/93 H Blood Pressure [Right Arm] 145/92 H Blood Pressure Mean 119 Blood Pressure Mean [Right Arm] 109 Blood Pressure Source [Right Arm] Automatic Cuff Blood Pressure Position [Right Arm] Sitting 02 Sat by Pulse Oximetry 99 98 Oxygen Delivery Method Room Air - Lab Data Lab results reviewed: Yes: I reviewed the patient's lab results. Lab Results 05/07/22 01:30: WBC 6.4, RBC 4.84, Hgb 15.7, Hct 46.1, MCV 95.1 H, MCH 32.4 H, MCHC 34.1, RDW 13.2, Plt Count 187, MPV 7.8, Neut % (Auto) 59.5, Lymph % (Auto) 26.2, [place] % (Auto) 9.2, Eos % (Auto) 4.2, Baso % (Auto) 0.9, Neut # (Auto) 3.8, Lymph # (Auto) 1.7, [place] # (Auto) 0.6, Eos # (Auto) 0.3, Baso # (Auto) 0.1, ESR 10 05/07/22 01:30: Sodium 137, Potassium 4.0, Chloride 101, Carbon Dioxide 32 H, Anion Gap 8.0, BUN 17, Creatinine 0.80, Estimated Creat Clear 126, Estimated GFR 99, Est GFR ( Amer) 119, Glucose 129 H, Calcium 9.2, Total Bilirubin 0.4, Direct Bilirubin 0.1, Conjugated Bilirubin 0.0, Indirect Bilirubin 0.3, Unconjugated Bilirubin 0.3, AST 34, ALT 21, Alkaline Phosphatase 85, Troponin I < 0.01, C-Reactive Protein 6.0 H, Total Protein 7.0, Albumin 4.3, Amylase 61, Lipase 36, Procalcitonin 0.052 05/07/22 01:30: Lactate 1.3 05/07/22 01:39: SARS-CoV-2 (PCR) Detected A, Influenza A Untype (PCR) Not detected, Influenza Type B (PCR) Not detected 05/07/22 01:47: Urine Color Yellow, Urine Appearance Clear, Urine pH 6.5, Ur Specific [place] 1.015, Urine Protein Negative, Urine Glucose (UA) Negative, Urine Ketones Negative, Urine Blood 2+, Urine Nitrate Negative, Urine Bilirubin Negative, Urine Urobilinogen 0.2, Ur Leukocyte Esterase Negative, Urine RBC 5-10, Urine Bacteria Trace Result diagrams: 05/07/22 01:30 05/07/22 01:30 Orders (Tests/Meds): ED MEDICATIONS Generic Name Dose Route Start Last Admin Trade Name Freq PRN Reason Stop Dose Admin Sodium Chloride 1,000 mls @ 999 mls/hr 05/07/22 01:45 05/07/22 01:53 Sod Chlor 0.9% 1000ml Bag IV 05/07/22 02:45 999 mls/hr .Q1H1M ESE Administration Sodium Chloride 1,000 mls @ 999 mls/hr 05/07/22 02:00 05/07/22 02:00 Sod Chlor 0.9% 1000ml Bag IV 05/07/22 03:00 999 mls/hr .Q1H1M ESE Administration Sodium Chloride 10 ml 05/07/22 01:57 Sodium Chloride 0.9% 10ml Flush Syringe IV 06/06/22 01:56 NEEDED PRN Maintain IV Site Discontinued Medications Generic Name Dose Route Start Last Admin Trade Name Freq PRN Reason Stop Dose Admin Iopamidol 75 ml 05/07/22 02:25 05/07/22 02:28 Iopamidol-370 (76%);100ml Bottle IV 05/07/22 02:26 75 ml ONCE ONE Administration Ketorolac Tromethamine 30 mg 05/07/22 03:07 05/07/22 03:09 Ketorolac 30mg/Ml Vial IV 05/07/22 03:08 30
[2022-05-07 03:56] VITALS: BP 160/90; PULSE 70; RESP 18; TEMP 36.8; O2SAT 99
== END 2022-05-07 04:07 | disposition home or self-care (01) ==
PROVIDERS: Emergency Provider Emergency Medicine; PCP Nurse Practitioner Family
DX: U07.1 COVID-19 (principal); N13.2 Hydronephrosis with renal and ureteral calculous obstruction; Z79.899 Other long term (current) drug therapy; K21.9 Gastro-esophageal reflux disease without esophagitis; G43.909 Migraine, unspecified, not intractable, without status migrainosus; Z72.0 Tobacco use
CPT/HCPCS: 71046; 72125; 72128; 72131; 74177; 80048; 80076; 81001; 82150; 83605; 83690; 84145; 84484; 85025; 85651; 86140; 87040; 93005; 96365; 96366; 96375; 99285; C9803; Q9967; U0003; U0005

== ENCOUNTER → 2022-05-13 13:37 | Outpatient (CLI) | payer OTHER, SELFPAY ==
--- NOTE | 2022-05-13 13:41 | XR_ITS ---
FINAL REPORT CLINICAL HISTORY: kidney stone FINDINGS: A single view of the abdomen was obtained. There is a large amount of retained stool within the colon. The bowel gas pattern is otherwise unremarkable. There is a right paraspinal calcification at the level of L3 measuring 1 cm which could represent a ureteral stone. Pelvic calcifications are stable. There is no acute osseous abnormality. IMPRESSION: Large amount of retained stool. Findings could represent a 1 cm ureteral stone. Reviewed, Interpreted and Dictated by Zulema Corey MD Transcribed by Zoë Ledbetter Authenticated and [facility]
== END ==
PROVIDERS: PCP Nurse Practitioner Family; Visit Provider Urology
DX: N20.0 Calculus of kidney (principal)
CPT/HCPCS: 74018

== ENCOUNTER 2022-05-14 21:33 | Emergency (ER) | payer OTHER, SELFPAY ==
[2022-05-14 21:53] VITALS: BP 164/91; PULSE 75; RESP 18; TEMP 36.8; O2SAT 98; BMI 23.0
[2022-05-14 22:00] VITALS: BP 131/74; PULSE 73; O2SAT 98
[2022-05-14 22:05] LABS: Microscopic, Urine URINE MICROSCOPIC (MICROSCOPIC)
[2022-05-14 22:08] LABS: Appearance,Urine CLOUDY (Clear); Blood, Urine 3+ (Negative); Color,Urine BROWN (Yellow); Glucose,Urine (UA) Negative (Negative); Ketones,Urine Negative (Negative); Leukocyte Esterase,Urine Negative (Negative); Nitrate,Urine Negative (Negative); PH,Urine 6.5 (5.0-8.5); Protein,Urine 2+ (Negative); Specific Gravity, Urine >= 1.030 (1.005-1.030)
[2022-05-14 22:12] LABS: Alanine Aminotransferase 17 U/L (12-78); Albumin Level 4.2 g/dl (3.5-5.0); Albumin/Globulin Ratio 1.6 (1.1-1.8); Alkaline Phosphatase 101 U/L (38-126); Anion Gap 7.8 mEq/L (5-15); Aspartate Amino Transferase 36 U/L (17-59); Bilirubin,Total 0.5 mg/dl (0.2-1.3); Blood Urea Nitrogen 23 mg/dl (9-20); Calcium 9.4 mg/dl (8.4-10.2); Carbon Dioxide 29 mmol/L (22.0-30.0); Chloride 104 mmol/L (98-107); Creatinine Clearance Estimated 91 mL/min (50-200); Estimated Glomerular Filt Rate 68 ml/min (>60); GFR (African American) 83 ML/MIN (>60); Globulin 2.7 g/dL (1.3-3.2); Glucose 122 mg/dl (74-100); Potassium 3.8 mmoL/L (3.5-5.1); Sodium 137 mmol/L (136-145); Total Protein,Serum 6.9 g/dl (6.3-8.2)
--- NOTE | 2022-05-14 22:14 | CT_ITS ---
PROCEDURE INFORMATION: Exam: CT Abdomen And Pelvis Without Contrast Exam date and time: 05/14/2022 10:23 PM Age: 61 years old Clinical indication: Condition or disease; Kidney or ureter condition; Calculus (stone) in kidney; Additional info: Kidney stone, worsening pain TECHNIQUE: Imaging protocol: Computed tomography of the abdomen and pelvis without contrast. Radiation optimization: All CT scans at this facility use at least one of these dose optimization techniques: automated exposure control; mA and/or kV adjustment per patient size (includes targeted exams where dose is matched to clinical indication); or iterative reconstruction. COMPARISON: CT ABDOMEN PELVIS W CON 05/07/2022 2:11 AM FINDINGS: Lungs: Dependent atelectasis. Lung bases are negative for dominant mass or airspace consolidation. Punctate calcified granulomas within the lung bases. Heart: The heart is not enlarged. A tiny pericardial effusion or pericardial thickening is present. Minimal coronary artery calcifications. Diaphragm: Sliding hiatal hernia. Liver: Normal. No mass. Gallbladder and bile ducts: Normal. No calcified stones. No ductal dilation. Pancreas: Normal. No ductal dilation. Spleen: Normal. No splenomegaly. Adrenal glands: Normal. No mass. Kidneys and ureters: Previously described 11 x 4 mm calcification or collection of smaller calcifications within the proximal right ureter has migrated to the mid right ureter. There is slight increase in right hydroureteronephrosis to the level of this obstructing calcification. Fluid and inflammation around the right kidney and collecting system compatible with calyceal rupture. Punctate calyceal calcifications elsewhere within the bilateral kidneys. Stomach and bowel: Unremarkable. No obstruction. No mucosal thickening. Appendix: The appendix appears normal. Intraperitoneal space: Unremarkable. No free air. No significant fluid collection. Vasculature: Calcifications within the aorta and its branches. Lymph nodes: Unremarkable. No enlarged lymph nodes. Urinary bladder: Unremarkable as visualized. Reproductive: Unremarkable as visualized. Bones/joints: Degenerative disc and facet disease result in multilevel central and foraminal stenosis within the lower lumbar spine. Chronic grade 1 anterolisthesis of L4 without evidence of pars defect appears to be due to chronic degenerative disc and facet disease. Soft tissues: Small fat containing left inguinal hernia. IMPRESSION: 1. Previously described 11 x 4 mm calcification or collection of smaller calcifications within the proximal right ureter has migrated to the mid right ureter. There is slight increase in right hydroureteronephrosis to the level of this obstructing calcification. Fluid and inflammation around the right kidney and collecting system compatible with calyceal rupture. 2. Punctate calyceal calcifications elsewhere within the bilateral kidneys. 3. Tiny pericardial effusion or pericardial thickening is present. 4. Sliding hiatal hernia. 5. Small fat containing left inguinal hernia. 6. Degenerative disc and facet disease result in multilevel central and foraminal stenosis within the lower lumbar spine. 7. Chronic grade 1 anterolisthesis of L4 without evidence of pars defect appears to be due to chronic degenerative disc and facet disease.
[2022-05-14 22:20] LABS: Bilirubin,Urine 1+ (Negative)
[2022-05-14 22:21] LABS: Bacteria,Urine Trace /lpf; RBC,Urine 50-100 #/hpf (0-3); Squamous Epithelial Cell,Urine Occasional #/hpf (0-5); WBC,Urine Occasional #/hpf (0-3)
[2022-05-14 22:29] LABS: Basophils % 0.4 % (0.1-2.0); Eosinophils # 0.1 K/mm3 (0.0-0.4); Eosinophils % 0.6 % (0.1-12.0); Hematocrit 46.6 % (42.0-52.0); Hemoglobin 14.9 g/dL (14.1-18.0); Lymphocytes # 1.2 K/mm3 (0.7-4.5); Lymphocytes % 10.7 % (10-50); Mean Corpuscular HGB Conc 31.9 g/dL (31.8-35.4); Mean Corpuscular Hemoglobin 32.4 pg (27.0-31.2); Mean Corpuscular Volume 101.4 fl (80-94); Mean Platelet Volume 8.9 fl (7.4-10.4); Monocytes # 0.6 K/mm3 (0.1-1.0); Neutrophils # 9.3 K/mm3 (1.8-7.8); Neutrophils % 83.2 % (37.0-80.0); Platelet Count 240 K/mm3 (142-424); Red Blood Count 4.59 M/mm3 (4.60-6.20); Red Cell Distribution Width 13.7 % (11.5-17.5); White Blood Count 11.2 K/mm3 (4.8-10.8)
--- NOTE | 2022-05-14 22:54 | PC.NURSE ---
at BS speaking with pt about POC.
--- NOTE | 2022-05-14 23:00 | HMH.EDGENADL ---
ED Disposition Clinical Impression: Kidney stone, Hydronephrosis, Ureterolithiasis Disposition: Home, Self-Care Condition on Discharge: Good Instructions: DI for Urinary Tract Infection (UTI) Additional Instructions: At this time was felt you are safe to be discharged home. If new or worsening symptoms please do not hesitate to return the emergency department. Please call and schedule an appointment with your urologist early next week. Please take your medication as prescribed. Prescriptions: Cefdinir [Omnicef 300mg Capsule] 300 mg PO BID #20 cap Transmission Status: Received by [facility] Oxycodone HCl [Oxycodone 5mg tab (IR)] 5 mg PO Q6H PRN #12 tab PRN Reason: Severe Pain Transmission Status: Received by [facility] Referrals: Marisol Goodwin APRN [Primary Care Provider] - Forms: Work/School Release - Critical Care Critical Care Time: No Attestation: On 05/14/22, the high probability of a clinically significant, sudden or life threatening deterioration of the following system(s) required my full and direct attention, intervention and personal management. The time I documented below is in addition to time spent performing reported procedures but includes the following listed in this critical care notation. Medical Decision Making - Juan Luis Inquiry Pt receiving controlled substance: Yes Juan Luis was queried for this patient: Yes Risks and benefits of using a controlled substance: were not discussed with pt by me Vital Signs: 05/14/22 21:53 05/14/22 22:00 05/15/22 00:39 Temperature 98.2 F 98.2 F Temperature Source Oral Oral Pulse Rate 73 72 Pulse Rate [Apical] 75 Respiratory Rate 18 18 Blood Pressure 131/74 128/70 Blood Pressure [Right Arm] 164/91 H Blood Pressure Mean [Right Arm] 115 Blood Pressure Source Automatic Cuff Blood Pressure Source [Right Arm] Automatic Cuff Blood Pressure Position Sitting Blood Pressure Position [Right Arm] Sitting 02 Sat by Pulse Oximetry 98 98 Oxygen Delivery Method Room Air Room Air Room Air - Lab Data Lab results reviewed: Yes: I reviewed the patient's lab results. Lab Results 05/14/22 21:41: Urine Color Brown, Urine Appearance Cloudy, Urine pH 6.5, Ur Specific [place] >= 1.030, Urine Protein 2+, Urine Glucose (UA) Negative, Urine Ketones Negative, Urine Blood 3+, Urine Nitrate Negative, Urine Bilirubin 1+ A, Urine Urobilinogen 1.0, Ur Leukocyte Esterase Negative, Urine RBC 50-100, Urine WBC Occasional, Ur Squamous Epith Cells Occasional, Urine Bacteria Trace 05/14/22 21:50: WBC 11.2 H, RBC 4.59 L, Hgb 14.9, Hct 46.6, MCV 101.4 H, MCH 32.4 H, MCHC 31.9, RDW 13.7, Plt Count 240, MPV 8.9, Neut % (Auto) 83.2 H, Lymph % (Auto) 10.7, [place] % (Auto) 5.0, Eos % (Auto) 0.6, Baso % (Auto) 0.4, Neut # (Auto) 9.3 H, Lymph # (Auto) 1.2, [place] # (Auto) 0.6, Eos # (Auto) 0.1, Baso # (Auto) 0.0 05/14/22 21:50: Sodium 137, Potassium 3.8, Chloride 104, Carbon Dioxide 29, Anion Gap 7.8, BUN 23 H, Creatinine 1.10, Estimated Creat Clear 91, Estimated GFR 68, Est GFR ( Amer) 83, Glucose 122 H, Calcium 9.4, Total Bilirubin 0.5, AST 36, ALT 17, Alkaline Phosphatase 101, Total Protein 6.9, Albumin 4.2, Globulin 2.7, Albumin/Globulin Ratio 1.6 Result diagrams: 05/14/22 21:50 05/14/22 21:50 Orders (Tests/Meds): ED MEDICATIONS Discontinued Medications Generic Name Dose Route Start Last Admin Trade Name April PRN Reason Stop Dose Admin Sodium Chloride 1,000 mls @ 999 mls/hr 05/14/22 22:00 05/14/22 22:02 Sod Chlor 0.9% 1000ml Bag IV 05/14/22 23:00 999 mls/hr .Q1H1M ESE Administration Ceftriaxone Sodium 1 gm/ 50 mls @ 100 mls/hr 05/14/22 23:45 05/14/22 23:57 Sodium Chloride IV 05/28/22 23:44 100 mls/hr Q24H ESE Administration Morphine Sulfate 4 mg 05/14/22 21:57 05/14/22 22:03 Morphine 4mg/Ml Syringe IV 05/14/22 21:58 4 mg ONCE ONE Administration Ondansetron HCl 4 mg 05/14/22 21:57 05/14/22 22:02 Ondanse
--- NOTE | 2022-05-14 23:24 | PC.NURSE ---
Pt ambulatory to bathroom with no assistance.
--- NOTE | 2022-05-14 23:50 | PC.NURSE ---
at speaking with pt about POC
--- NOTE | 2022-05-14 23:55 | PC.NURSE ---
Dr. Yanes s/w Dr. Don re pt results and CT. OK to dispo home if pain under control.
[2022-05-15 00:39] VITALS: BP 128/70; PULSE 72; RESP 18; TEMP 36.8; O2SAT 99
== END 2022-05-15 00:41 | disposition home or self-care (01) ==
PROVIDERS: Emergency Provider Emergency Medicine; PCP Nurse Practitioner Family
DX: N13.2 Hydronephrosis with renal and ureteral calculous obstruction (principal); Z79.899 Other long term (current) drug therapy; K21.9 Gastro-esophageal reflux disease without esophagitis; G43.909 Migraine, unspecified, not intractable, without status migrainosus; M19.90 Unspecified osteoarthritis, unspecified site; Z72.0 Tobacco use
CPT/HCPCS: 74176; 80053; 81001; 85025; 96365; 96367; 96375; 99284; J0696; J2405

== ENCOUNTER → 2022-05-21 16:31 | Outpatient (CLI) | payer OTHER, SELFPAY | PROVIDERS: PCP Nurse Practitioner Family | DX: Z01.812 Encounter for preprocedural laboratory examination (principal); Z20.822 Contact with and (suspected) exposure to COVID-19 | CPT/HCPCS: C9803; U0003; U0005 ==

== ENCOUNTER → 2022-10-18 07:59 | Outpatient (CLI) | payer OTHER, SELFPAY ==
[2022-10-18 08:47] LABS: Chloride 101 mmol/L (98-107)
[2022-10-18 08:48] LABS: Potassium 4.8 mmoL/L (3.5-5.1); Sodium 140 mmol/L (136-145)
[2022-10-18 08:50] LABS: Blood Urea Nitrogen 30 mg/dl (9-20); Estimated Glomerular Filt Rate 86 ml/min (>60); GFR (African American) 104 ML/MIN (>60)
[2022-10-18 08:51] LABS: Alanine Aminotransferase 23 U/L (12-78); Albumin Level 4.4 g/dl (3.5-5.0); Albumin/Globulin Ratio 1.8 (1.1-1.8); Alkaline Phosphatase 72 U/L (38-126); Anion Gap 11.8 mEq/L (5-15); Aspartate Amino Transferase 32 U/L (17-59); Bilirubin,Total 0.8 mg/dl (0.2-1.3); Calcium 9.2 mg/dl (8.4-10.2); Carbon Dioxide 32 mmol/L (22.0-30.0); Chol/HDL Ratio 3.6 (1-3.5); Cholesterol 171 mg/dl (140-200); Globulin 2.4 g/dL (1.3-3.2); Glucose 100 mg/dl (74-100); HDL Cholesterol 47 mg/dl (40-60); Total Protein,Serum 6.8 g/dl (6.3-8.2); Triglycerides 53 mg/dl (30-150); VLDL Cholesterol 11 mg/dL (0-40)
[2022-10-18 09:02] LABS: Direct LDL Cholesterol 101.68 mg/dL (100-129)
[2022-10-18 09:50] LABS: Prostate Specific Ag Screen 0.6 ng/ml (0.0-4.0)
[2022-10-22 18:32] LABS: Testosterone,Free 9.3 pg/mL (6.6-18.1)
== END ==
PROVIDERS: PCP Nurse Practitioner Family; Visit Provider Nurse Practitioner Family
DX: R03.0 Elevated blood-pressure reading, without diagnosis of hypertension (principal); E29.1 Testicular hypofunction; Z13.220 Encounter for screening for lipoid disorders; Z79.899 Other long term (current) drug therapy; Z12.5 Encounter for screening for malignant neoplasm of prostate
CPT/HCPCS: 36415; 80053; 80061; 84402; 84403; G0103

== ENCOUNTER → 2023-02-06 08:21 | Outpatient (CLI) | payer OTHER, SELFPAY ==
--- NOTE | 2023-02-06 | US_ITS ---
FINAL REPORT CLINICAL HISTORY: dizziness, bilateral leg numbness/pain, HTN, ex smoker FINDINGS: COMPLETE ANKLE/BRACHIAL INDICES BILATERAL Complete ankle brachial indices were obtained. The right ALIRIO is 1.2. The left ALIRIO is 1.2. IMPRESSION: ABIs are within normal limits bilaterally. Reviewed, Interpreted and Dictated by Willian Kaminski III, MD Transcribed by Kady Ogden Authenticated and [facility]
--- NOTE | 2023-02-06 | CA_ITS ---
FINAL REPORT CLINICAL HISTORY: HTN, ex smoker quit 6 months after smoking 45 years FINDINGS: The peak systolic velocity of the right common carotid artery is 116 cm/s. The peak systolic velocity of the right internal carotid artery is 67cm/s and end diastolic velocity 24 cm/s. The ICA/CCA ratio is 1.2. A small amount of plaque is present. The right external carotid artery is patent. The right vertebral artery is patent with antegrade flow. The peak systolic velocity of the left common carotid artery is 129 cm/s. The peak systolic velocity of the left internal carotid artery is 85 cm/s and end diastolic velocity 23 cm/s. The ICA/CCA ratio is 1.5. A small amount of plaque is present. The left external carotid artery is patent.The left vertebral artery is patent with antegrade flow. IMPRESSION: Less than 50% bilateral carotid stenoses. Bilateral patent vertebral arteries with antegrade flow. If indicated, CTA or MRA could further evaluate. Reviewed, Interpreted and Dictated by Willian Kaminski III, MD Transcribed by Kady Ogden Authenticated and [facility]
== END ==
PROVIDERS: PCP Nurse Practitioner Family; Visit Provider Nurse Practitioner Family
DX: R20.2 Paresthesia of skin (principal); M79.604 Pain in right leg; M79.605 Pain in left leg; R42 Dizziness and giddiness
CPT/HCPCS: 93880; 93923

== ENCOUNTER → 2023-10-13 12:00 | Outpatient (CLI) | payer OTHER, SELFPAY ==
[2023-10-13 11:46] LABS: Coronavirus 19, PCR Not Detected (NotDetected); Influenza A, PCR Not Detected (NotDetected)
[2023-10-13 12:22] LABS: Influenza B, PCR Detected (NotDetected)
== END ==
LOC: LAB.DROPOF 12:00
PROVIDERS: PCP Nurse Practitioner Family; Visit Provider Nurse Practitioner Family
DX: J06.9 Acute upper respiratory infection, unspecified (principal); J10.1 Influenza due to other identified influenza virus with other respiratory manifestations
CPT/HCPCS: 87636

== ENCOUNTER 2024-03-19 08:05 | Outpatient (CLI) | payer BC, SELFPAY ==
[2024-03-19 08:42] LABS: Basophils # 0.1 K/mm3 (0-0.2); Basophils % 0.8 % (0.1-2.0); Eosinophils # 0.2 K/mm3 (0.0-0.4); Eosinophils % 2.3 % (0.1-12.0); Hematocrit 47.1 % (42.0-52.0); Hemoglobin 15.6 g/dL (14.1-18.0); Lymphocytes # 1.5 K/mm3 (0.7-4.5); Lymphocytes % 21.2 % (10-50); Mean Corpuscular HGB Conc 33.1 g/dL (31.8-35.4); Mean Corpuscular Hemoglobin 31.7 pg (27.0-31.2); Mean Corpuscular Volume 95.5 fl (80-94); Mean Platelet Volume 7.7 fl (7.4-10.4); Monocytes # 0.5 K/mm3 (0.1-1.0); Monocytes % 6.5 % (1.7-9.3); Neutrophils # 4.8 K/mm3 (1.8-7.8); Neutrophils % 69.1 % (37.0-80.0); Platelet Count 226 K/mm3 (142-424); Red Blood Count 4.93 M/mm3 (4.60-6.20); Red Cell Distribution Width 13.8 % (11.5-17.5); White Blood Count 6.9 K/mm3 (4.8-10.8)
[2024-03-19 09:22] LABS: Hemoglobin A1C 5.7 % (4.0-6.0)
[2024-03-19 11:29] LABS: Alanine Aminotransferase 25 U/L (12-78); Albumin Level 4.3 g/dl (3.5-5.0); Albumin/Globulin Ratio 1.7 (1.1-1.8); Alkaline Phosphatase 64 U/L (38-126); Anion Gap 13.3 mEq/L (5-15); Aspartate Amino Transferase 30 U/L (17-59); Bilirubin,Total 0.7 mg/dl (0.2-1.3); Blood Urea Nitrogen 27 mg/dl (9-20); Carbon Dioxide 30 mmol/L (22.0-30.0); Chloride 97 mmol/L (98-107); Chol/HDL Ratio 3.5 (1-3.5); Cholesterol 190 mg/dl (140-200); Estimated Glomerular Filt Rate 68 ml/min (>60); GFR (African American) 82 ML/MIN (>60); Globulin 2.5 g/dL (1.3-3.2); Glucose 103 mg/dl (74-100); HDL Cholesterol 55 mg/dl (40-60); Potassium 4.3 mmoL/L (3.5-5.1); Sodium 136 mmol/L (136-145); Total Protein,Serum 6.8 g/dl (6.3-8.2); Triglycerides 66 mg/dl (30-150); VLDL Cholesterol 13 mg/dL (0-40)
[2024-03-19 11:45] LABS: 25-OH Vitamin D, Total 25.7 ng/mL (30-100)
[2024-03-19 11:51] LABS: Direct LDL Cholesterol 117.24 mg/dL (100-129)
[2024-03-19 11:59] LABS: Prostate Specific Ag Screen 1.1 ng/ml (0.0-4.0)
[2024-03-19 12:18] LABS: Vitamin B12 219 pg/mL (239-931)
[2024-03-19 12:41] LABS: Ferritin 204 ng/ml (17.9-464)
[2024-03-20 07:16] LABS: Testosterone,Total 509 ng/dL (264-916)
== END 2024-03-19 23:59 | disposition home or self-care (01) ==
LOC: LAB 08:07
PROVIDERS: PCP Nurse Practitioner Family; Visit Provider Nurse Practitioner Family
DX: R25.2 Cramp and spasm (principal); R53.1 Weakness; R73.09 Other abnormal glucose; I10 Essential (primary) hypertension; Z12.5 Encounter for screening for malignant neoplasm of prostate; R53.83 Other fatigue; E53.8 Deficiency of other specified B group vitamins
CPT/HCPCS: 36415; 80053; 80061; 82306; 82607; 82728; 83036; 83735; 84403; 85025; G0103

== ENCOUNTER 2024-04-08 06:06 | Outpatient (CLI) | payer SELFPAY ==
--- NOTE | 2024-04-08 06:26 | CT_ITS ---
APPROVED REPORT Signal Operator Technical: CLINICAL INDICATION Risk stratification TECHNIQUE Image Acquisition: A 128 slice MDCT scanner (Choose Digitala View) was used for data acquisition. A noncontrast coronary calcium scan was performed. A CT attenuation threshold of 130 Hounsfield units (HU) was used for the detection of calcium in contiguous voxels of 1 sq mm in area to be counted as individual lesions. A tube voltage of 120 KVp was used. The patient received no medications prior to the coronary calcium CT. Image Reconstruction Transaxial images were reconstructed at 0.67 mm slide thickness. Data was reviewed interactively on an advanced workstation capable of 2 and 3-dimensional displays in all conventional reconstruction formats, including multiplanar reformations, maximum intensity projections, curved multiplanar reformations, and volume rendered reconstructions. When applicable, selected routine images describing the relevant coronary anatomy and pathology were saved and sent to PACS. Complications None Technical Quality Overall image quality was good. Total DLP (Dose-Length Product) is 179.9 mGy-cm. The reported value represents the total of one or more individual components during the CT acquisition of this date and at this time, and as such, the same value may appear in more than one CT report depending on the interpreting/reporting physicians. COMPARISON None FINDINGS CT Coronary Calcium Scoring LMA (Left Main Artery) = 0 LAD (Left Anterior Descending) = 61 LCX (Left Coronary Circumflex) = 0 RCA (Right Coronary Artery) = 0 Total Calcium Score = 61 using the AJ-130 method. There is no identifiable calcification in the aortic valve, mitral annulus or mitral valve, pericardium, or myocardium. IMPRESSION -Coronary artery calcification is present. -Total Calcium Score (Agatston Score) = 61 using the AJ-130 method. -The observed calcium score of 61 is at 54th percentile for subjects of the same age, sex, and race/ethnicity. The interpretation of the calcium heart score is based on the following continuum*: 0 = no calcified plaque detected (risk of coronary artery disease is very low ??? less than 5%) 1-10 = calcium detected in extremely minimal levels (risk of coronary diseases is still low ??? less than 10%) 11-100 = mild levels of plaque detected with certainty (mild or minimal narrowing of heart arteries is likely) 101-400 = definite,at least moderate levels of plaque detected (relatively high risk of a heart attack within 3-5 years) >401-999 = extensive levels of plaque detected (high risk of heart attack, high levels of vascular disease are present, high likelihood of at least one significant coronary narrowing) *The calcium heart score quantifies the burden of coronary calcification/plaque in the coronary arteries. The calcium heart score does not evaluate the presence or the burden of non-calcified (i.e. soft) plaque. The coronary and cardiac findings of this Coronary Calcium CT were reviewed, reported, and signed by Syed Kaye MD ([employer] Process Engineer). Conclusion Electronically signed by : Ina Kaye MD 04/11/2024 11:52:54
== END 2024-04-08 23:59 | disposition home or self-care (01) ==
LOC: RAD 06:06
PROVIDERS: PCP Nurse Practitioner Family; Visit Provider Nurse Practitioner Family
DX: Z13.6 Encounter for screening for cardiovascular disorders (principal)
CPT/HCPCS: 75571

== ENCOUNTER 2024-07-13 16:38 | Outpatient (CLI) | payer BC, SELFPAY ==
--- NOTE | 2024-07-13 16:42 | XR_ITS ---
FINAL REPORT CLINICAL HISTORY: lumbago FINDINGS: No fracture is identified. There is grade 1 spondylolisthesis of L4 on 5. There is minimal retrolisthesis of L2 on 3. Moderate facet arthropathy is identified. There is advanced degenerative disc disease of the lumbosacral junction. IMPRESSION: Advanced degenerative disc disease. Reviewed, Interpreted and Dictated by Yonathan Davila MD Transcribed by Kady Ogden Authenticated and [facility]
== END 2024-07-13 23:59 | disposition home or self-care (01) ==
LOC: RAD 16:39
PROVIDERS: PCP Nurse Practitioner Family; Visit Provider Nurse Practitioner Family
DX: M51.36 Other intervertebral disc degeneration, lumbar region (principal); M54.50 Low back pain, unspecified
CPT/HCPCS: 72100

== ENCOUNTER 2024-08-02 16:00 | Outpatient (RCR) | payer BC, SELFPAY | END 2024-09-06 13:48 | disposition home or self-care (01) | LOC: PT 16:00 | PROVIDERS: Visit Provider Nurse Practitioner Family | DX: M51.360 Other intervertebral disc degeneration, lumbar region with discogenic back pain only (principal) | CPT/HCPCS: 97163 ==

== ENCOUNTER 2024-09-12 16:28 | Outpatient (CLI) | payer BC, SELFPAY ==
--- NOTE | 2024-09-12 16:34 | XR_ITS ---
PROCEDURE INFORMATION: Exam: XR Left Wrist Exam date and time: 09/12/2024 4:36 PM Age: 63 years old Clinical indication: Pain; Wrist; Left; Additional info: Left wrist pain, injury TECHNIQUE: Imaging protocol: Radiologic exam of the left wrist. Views: 3 or more views. COMPARISON: No relevant prior studies available. FINDINGS: Bones/joints: Normal. Soft tissues: Normal. IMPRESSION: No acute findings.
== END 2024-09-12 23:59 | disposition home or self-care (01) ==
LOC: RAD 16:29
PROVIDERS: PCP Nurse Practitioner Family; Visit Provider Nurse Practitioner Family
DX: M25.532 Pain in left wrist (principal)
CPT/HCPCS: 73110

== ENCOUNTER 2025-03-10 11:30 | Outpatient (CLI) | payer BC, SELFPAY ==
[2025-03-10 12:26] LABS: Basophils % 0.5 % (0.1-2.0); Eosinophils % 0.5 % (0.1-12.0); Hematocrit 46.9 % (42.0-52.0); Hemoglobin 15.9 g/dL (14.1-18.0); Immature Granulocytes # 0.02 10^3uL; Immature Granulocytes % 0.3 %; Lymphocytes # 1.2 K/mm3 (0.7-4.5); Lymphocytes % 17.6 % (10-50); Mean Corpuscular HGB Conc 33.9 g/dL (31.8-35.4); Mean Corpuscular Hemoglobin 31.5 pg (27.0-31.2); Mean Corpuscular Volume 93.1 fl (80-94); Mean Platelet Volume 9.6 fl (7.4-10.4); Monocytes # 0.5 K/mm3 (0.1-1.0); Neutrophils # 4.8 K/mm3 (1.8-7.8); Neutrophils % 73.1 % (37.0-80.0); Nucleated Red Blood Cells # 0 10^3/uL; Nucleated Red Blood Cells % 0 %; Platelet Count 269 K/mm3 (142-424); Red Blood Count 5.04 M/mm3 (4.60-6.20); Red Cell Distribution Width-SD 44.2 fL; White Blood Count 6.5 K/mm3 (4.8-10.8)
[2025-03-10 12:53] LABS: Alanine Aminotransferase 22 U/L (12-78); Alkaline Phosphatase 59 U/L (38-126); Anion Gap 11.1 mEq/L (5-15); Aspartate Amino Transferase 29 U/L (17-59); Bilirubin,Total 0.9 mg/dl (0.2-1.3); Blood Urea Nitrogen 27 mg/dl (9-20); Calcium 9.9 mg/dl (8.4-10.2); Carbon Dioxide 30 mmol/L (22.0-30.0); Chloride 98 mmol/L (98-107); Chol/HDL Ratio 4.1 (1-3.5); Cholesterol 154 mg/dl (140-200); Estimated Glomerular Filt Rate 68 ml/min (>60); GFR (African American) 82 ML/MIN (>60); Globulin 2.5 g/dL (1.3-3.2); Glucose 99 mg/dl (74-100); HDL Cholesterol 38 mg/dl (40-60); Magnesium 2.2 mg/dl (1.6-2.3); Potassium 5.1 mmoL/L (3.5-5.1); Sodium 134 mmol/L (136-145); Total Protein,Serum 7.5 g/dl (6.3-8.2); Triglycerides 101 mg/dl (30-150); VLDL Cholesterol 20 mg/dL (0-40)
[2025-03-10 13:04] LABS: Direct LDL Cholesterol 94.15 mg/dL (100-129)
[2025-03-10 13:11] LABS: 25-OH Vitamin D, Total 42.2 ng/mL (30-100)
[2025-03-10 13:23] LABS: Thyroid Stimulating Hormone 1.58 uIU/mL (0.465-4.68)
[2025-03-10 13:42] LABS: Vitamin B12 314 pg/mL (239-931)
[2025-03-10 13:55] LABS: Hemoglobin A1C 5.4 % (4.0-6.0)
[2025-03-12 14:29] LABS: H. pylori Breath Test Negative (Negative)
== END 2025-03-10 23:59 | disposition home or self-care (01) ==
LOC: LAB 11:31
PROVIDERS: PCP Nurse Practitioner Family; Visit Provider Nurse Practitioner Family
DX: R73.03 Prediabetes (principal); R79.89 Other specified abnormal findings of blood chemistry; K59.00 Constipation, unspecified; I49.9 Cardiac arrhythmia, unspecified; I10 Essential (primary) hypertension; R10.13 Epigastric pain
CPT/HCPCS: 36415; 80053; 80061; 82306; 82607; 83013; 83036; 83735; 84443; 85025; 93225; 93227

== ENCOUNTER 2025-03-16 08:54 | Outpatient (CLI) | payer BC, SELFPAY ==
--- NOTE | 2025-03-16 09:30 | US_ITS ---
FINAL REPORT CLINICAL HISTORY: dyspepsia COMPARISON: None FINDINGS: Sonographic images of the right upper quadrant were obtained. The pancreas is partially obscured.The liver has an unremarkable appearance. A polyp is noted in the gallbladder, 3 mm in size. There is no evidence of biliary ductal dilatation.The common duct measures 3 mm. Limited images of the right kidney are unremarkable. IMPRESSION: Gallbladder polyp, as described, without evidence of biliary ductal dilatation. Reviewed, Interpreted and Dictated by Cristhian Perez MD Transcribed by Marian Blanco Authenticated and [facility]
== END 2025-03-16 23:59 | disposition home or self-care (01) ==
PROVIDERS: PCP Nurse Practitioner Family; Visit Provider Nurse Practitioner Family
DX: K82.4 Cholesterolosis of gallbladder (principal)
CPT/HCPCS: 76705

== ENCOUNTER 2025-03-23 10:44 | Outpatient (CLI) | payer BC, SELFPAY ==
--- NOTE | 2025-03-23 11:00 | CT_ITS ---
FINAL REPORT TECHNIQUE: Thin section axial images were obtained through the lungs using a low-dose technique per lung cancer screening protocol. Reconstruction images were obtained using the axial data. Exam was performed using dose reduction technique. This study was performed with techniques to keep radiation doses as low as reasonably achievable (ALARA). Individualized dose reduction techniques using automated exposure control or adjustment of mA and/or kV according to the patient's size were employed. CLINICAL HISTORY: lung cancer screening PREVIOUS SMOKER, QUIT 2 YEARS AGO, 1 PPD X 35 YEARS. CURRENTLY VAPING FOR 2 YEARS COMPARISON: None FINDINGS: CTDLvol: 2.90 DLP: 120.63 Former smoker, quit 2 years ago, current vaper 35 pack year history Lungs: No acute pulmonary abnormality. No suspicious nodules. There is evidence of prior granulomatous disease. Lymph nodes: No thoracic lymphadenopathy. Mediastinum: Heart size is normal. Pleura/pericardium: No pleural or pericardial effusion. Other: No acute abnormality in the upper abdomen. IMPRESSION: No suspicious pulmonary nodule or mass. Lung RADS: 1 Recommendation: 12-month follow-up LDCT. Reviewed, Interpreted and Dictated by Zulema Corey MD Transcribed by Marian Blanco Authenticated and [facility]
== END 2025-03-23 23:59 | disposition home or self-care (01) ==
LOC: RAD 10:44
PROVIDERS: PCP Nurse Practitioner Family; Visit Provider Nurse Practitioner Family
DX: Z12.2 Encounter for screening for malignant neoplasm of respiratory organs (principal); Z72.0 Tobacco use
CPT/HCPCS: 71271

== ENCOUNTER 2025-05-29 11:27 | Day surgery (SDC) | payer BC, SELFPAY ==
[2025-05-29 11:57] VITALS: BMI 24.7
[2025-05-29] MEDS: LACTATED RINGERS 1000ML 1,000 ML 50 ML IV (12:00)
[2025-05-29 12:05] VITALS: BP 152/74; PULSE 93; RESP 17; TEMP 36.3; O2SAT 98
--- NOTE | 2025-05-29 12:34 | P.PNANES_ITS ---
[facility] Disclaimer: The information contained in this section may have been updated after the patient was seen, as this information can be updated by other users. Medical History Acute bronchitis COVID-19 Renal colic on right side Facial abscess Family history of ischemic heart disease Edema of lower extremity Dizziness Palpitation Tobacco dependence syndrome Dyspnea Chest pain Nephrolithiasis Left ureteral calculus Surgical History (Updated 05/29/25 @ 12:02 by June Khan RN) History of neck surgery H/O vasectomy Family History Father Family history of myocardial infarction Lung cancer Family history of diabetes mellitus type II Social History Smoking Status: Current every day smoker tobacco type: e-cigarettes alcohol intake: never substance use type: marijuana current occupational status: retired Travel in the last 8 weeks?: None household members: spouse housing: house current occupation: [employer] caffeine: Yes Have you lived/traveled outside [place] in past 30 days?: No Contact w/someone who lives/traveled outside [place] past 30 days?: No Exposure to someone with infectious disease in past 14 days?: No Do you have a fever (greater than 100.4 F or 38 C)?: No Have you tested positive for COVID-19?: No Exposed to someone with COVID-19 in past 14 days?: No Do you have a sore throat?: No Do you have a cough?: No Do you have any weakness?: No Do you have any diarrhea?: No Are you experiencing any unusual bleeding?: No Do you have any muscle aches/pain?: No Do you have any abdominal pain?: No Are you experiencing loss of taste or smell?: No [facility] Anesthesia Checklist Patient Identification Patient Identification: Arm Band Structural Data Admitted From: Home Planned Operative Procedure/s: EGD/Colonoscopy Consent for Planned Operative Procedure(s) Verified: Yes Verified Documents: Surgical Consent and History and Physical NPO Status Verified Time NPO: 00:00 Additional verifications Anesthesia Reactions: No Hx Blood Transfusions: No Blood Transfusion Reaction: No Airway Assessment Mallampati Score:: Class II C-Spine Mobility Assessed: Yes TMJ Mobility Assessed: Yes Dentition: Good Dentition Neurological Assessment Level of Consciousness: Awake, Alert and Appropriate Anesthesia Plan Anesthesia Risk discussed: Yes Anesthesia Plan: Verified ASA Class: II Anesthesia Type: MAC
--- NOTE | 2025-05-29 12:48 | P.HP_ITS ---
History of Present Illness *Admission Date: 05/29/25 *History of present illness: Mr. Rios is a 64-year-old gentleman who is here for diagnostic EGD and screening colonoscopy. The patient has had chronic GERD, belching and some bloating for upper endoscopy. His last colonoscopy was 14 years ago and he is here for screening colonoscopy as well. The examination is deemed medically necessary for diagnostic EGD and screening colonoscopy. The patient has been seen, interviewed and examined prior to the procedure by both myself and the anesthesia provider. [facility] Disclaimer: The information contained in this section may have been updated after the patient was seen, as this information can be updated by other users. Medical History (Updated 05/29/25 @ 13:41 by Toño Martínez II, MD) Acute bronchitis COVID-19 Renal colic on right side Facial abscess Family history of ischemic heart disease Edema of lower extremity Dizziness Palpitation Tobacco dependence syndrome Dyspnea Chest pain Nephrolithiasis Left ureteral calculus Surgical History (Updated 05/29/25 @ 12:02 by June Khan RN) History of neck surgery H/O vasectomy Family History Father Family history of myocardial infarction Lung cancer Family history of diabetes mellitus type II Social History Smoking Status: Current every day smoker tobacco type: e-cigarettes alcohol intake: never substance use type: marijuana current occupational status: retired Travel in the last 8 weeks?: None household members: spouse housing: house current occupation: [employer] caffeine: Yes Have you lived/traveled outside [place] in past 30 days?: No Contact w/someone who lives/traveled outside [place] past 30 days?: No Exposure to someone with infectious disease in past 14 days?: No Do you have a fever (greater than 100.4 F or 38 C)?: No Have you tested positive for COVID-19?: No Exposed to someone with COVID-19 in past 14 days?: No Do you have a sore throat?: No Do you have a cough?: No Do you have any weakness?: No Do you have any diarrhea?: No Are you experiencing any unusual bleeding?: No Do you have any muscle aches/pain?: No Do you have any abdominal pain?: No Are you experiencing loss of taste or smell?: No Other Medical History Have you received the Flu Vaccine for this season: No Have you received the Pneumonia Vaccine: No Review of Systems Review of Systems Review of systems (narrative): Negative *Cardiovascular Comments: Negative *Gastrointestinal Comments: Negative *Genitourinary Comments: Negative *Musculoskeletal Comments: Negative *Neurologic Comments: Negative Meds Home Medications and Allergies Home Medications ?Medication ?Instructions ?Recorded ?Confirmed ?Type desvenlafaxine succinate 25 mg 25 mg PO DAILY #30 tabs 03/10/25 05/29/25 Rx tablet,extended release 24 hr (Pristiq) lisinopril 20 mg tablet 20 mg PO .morning 03/10/25 0 05/29/25 History lisinopril 20 1 tab PO .evening 03/10/25 0 05/29/25 History mg-hydrochlorothiazide 12.5 mg tablet tamsulosin 0.4 mg capsule (Flomax) 0.4 mg PO DAILY #90 caps 03/10/25 05/29/25 Rx esomeprazole magnesium 40 mg 40 mg PO DAILY 05/25/25 0 05/29/25 History capsule,delayed release (Nexium) New Prescriptions to Start Prescriptions: Allergies Allergy/AdvReac Type Severity Reaction Status Date / Time No Known Allergies Allergy Verified 05/29/25 12:02 Exam Data for Last 24 hours Vital signs and Labs for Last 24 Hours: Temp Pulse Resp BP Pulse Ox O2 Del Method 97.3 F L 93 H 17 152/74 H 98 Room Air 05/29/25 12:05 05/29/25 12:05 05/29/25 12:05 05/29/25 12:05 05/29/25 12:05 05/29/25 12:05 I & O for Last 24 hours: Intake & Output 05/26/25 05/27/25 05/28/25 05/29/25 23:59 23:59 23:59 23:59 Weight 214 lb *Routine HEENT Exam Head: Present normocephalic Eye: Present EOMI and PERRL ENT: Present mucous membranes moist *Routine Neck Exam Neck: Present supple *Routine Respiratory Exam Respiratory: Present CTA bilaterally *Routine Cardiovascular Exam Cardiovascular: Present RRR *Routine Abdominal Exam Abdominal: Present soft and normoactive bowel sounds; Absent tenderness *Routine Rectal Exam Rectal:: deferred *Routine Genitalia Exam Genitalia:: deferred *Routine Extremities Exam Extremities: Absent cyanosis, clubbing or edema *Routine Skin Exam Skin: Present warm; Absent rash *Routine Neurological Exam Neurological: Present alert and oriented X3 Assessment and Plan *Assessment and plan (1) Screening for colon cancer: Status: Acute Category: Medical Code(s): Z12.11 - Encounter for screening for malignant neoplasm of colon (2) Hx of colonic polyps: Status: Acute Category: Medical Code(s): Z86.0100 - Personal history of colon polyps, unspecified (3) GERD (gastroesophageal reflux disease): Status: Acute Category: Medical Code(s): K21.9 - Gastro-esophageal reflux disease without esophagitis (4) Belching: Status: Acute Category: Medical Code(s): R14.2 - Eructation (5) Personal history of colon polyps, unspecified: Status: Acute Category: Medical Code(s): Z86.0100 - Personal history of colon polyps, unspecified Plan A/P: 1. Chronic GERD/belching for upper endoscopy and screening for colonoscopy is the preprocedural diagnosis. The patient's last colonoscopy was 14 years ago and he had a couple of benign polyps (unspecified) removed the patient will be anesthetized/sedated using MAC sedation. The patient has been seen and examined. Cardiac and lung assessment prior to the examination is stable. Proceed with planned diagnostic EGD and screening colonoscopy.
--- NOTE | 2025-05-29 13:42 | HMH.PROCNOTE ---
[facility] Procedure Note Date: 05/29/25 Time: 13:47 Procedure Note:: Upper Endoscopy Procedure Report: Esophagogastroduodenoscopy with cold biopsies Endoscopost: oTño Martínez II, MD Referring Physician: MARIANA Ledezma Date of Procedure: May 29, 2025 Equipment: Olympus [id number] standard upper endoscope Sedation: MAC sedation Indications: Mr. Rios is a 64-year-old gentleman with chronic GERD who is here for diagnostic EGD. The patient does have moderate belching and some bloating. He has been on Nexium and has been on acid reflux medications for 15 to 20 years. He did have anterior cervical neck surgery. He reports no dysphagia or globus sensation. This is his first upper endoscopy. Procedure: Prior to the procedure, a history and physical exam was performed, and patient's medications and allergies were reviewed. The risks, benefits and alternatives of the sedation and procedure were discussed with the patient. All questions were answered and informed consent was obtained. The patient was brought to the procedure room. Patient identification and proposed procedure were verified by the physician and the nurse. The patient was placed in a left lateral decubitus position and the scope was passed under direct vision. Throughout the procedure, the patient's blood pressure, pulse, and oxygen saturations were monitored continuously. The upper GI endoscopy was accomplished without difficulty. The patient tolerated the procedure well. Findings: The scope was passed directly into the upper esophagus and advanced to the third portion of the duodenum. The post bulbar duodenum, ampulla and duodenal bulb were normal with normal mucosa and conniventes. A cold biopsy was taken from the second portion of the duodenum for the disaccharidase assay. The scope was withdrawn through a normal duodenal bulb and pylorus into the stomach. There was mild antral gastropathy and mild chronic gastritis. Cold biopsies were taken along the lesser curvature of the stomach. Upon retroflexion there was a very small sliding 1 to 2 cm hiatal hernia. The scope was then withdrawn into the esophagus. There is no evidence of reflux esophagitis or Martinez's. The remainder of the esophageal mucosa was normal. Impression: 1. Nonerosive GERD with very small sliding 1 to 2 cm hiatal hernia 2. Mild antral gastropathy and mild chronic gastritis Plan: I will follow-up the biopsies and the disaccharidase assay. I will discuss the findings with the patient and family. I will proceed with screening colonoscopy.
--- NOTE | 2025-05-29 13:49 | HMH.PROCNOTE ---
[facility] Procedure Note Date: 05/29/25 Time: 14:06 Procedure Note:: Colonoscopy Procedure Report: Colonoscopy with cold snare polypectomy Endoscopist: Toño Martínez II, MD Referring physician: MARIANA Ledezma Date of Procedure: May 29, 2025 Equipment: Olympus [id number] adult colonoscope Sedation: MAC sedation Indication: Mr. Rios is a 64-year-old gentleman who is here for follow-up screening/surveillance colonoscopy. He did have a colonoscopy 14 years ago (at age 50) and had 1 or 2 benign polyps removed. He reports no abdominal pain, weight loss, change in his bowel habits or rectal bleeding. He reports no family history of colon cancer. He does have some chronic constipation. Procedure: Prior to the procedure, a history and physical exam was performed, and patient's medications and allergies were reviewed. The risks, benefits and alternatives of the sedation and procedure were discussed with the patient. All questions were answered and informed consent was obtained. The patient was brought to the procedure room. Patient identification and proposed procedure were verified by the physician and the nurse. The patient was placed in a left lateral decubitus position and the scope was passed under direct vision. Throughout the procedure, the patient's blood pressure, pulse, and oxygen saturations were monitored continuously. The colonoscopy was accomplished without difficulty. The patient tolerated the procedure well. Findings: On digital rectal examination there was normal rectal tone. There were no external hemorrhoids. The prostate was 2+, smooth, soft, symmetric without nodules. The colonoscope was introduced through the anal canal to the rectum and advanced to the cecum. The ileocecal valve and appendiceal orifice were identified. The scope was advanced a short distance into the ileum which appeared grossly normal. The scope was then withdrawn into the colon. The cecum, ascending and transverse colon and mucosa were grossly normal. There were mildly scattered shallow diverticuli throughout the sigmoid colon (LEFT colon). There were 3 diminutive polyps (rectosigmoid x 3 (3, 4 and 4 mm)). These were all removed via cold snare polypectomy. The rectum itself was normal. Upon retroflexion within the rectum there were grade 2 internal hemorrhoids. The preparation was excellent throughout with [place] Preparation Score of 9. The cecal time was 12 minutes. Impression: 1. Diminutive rectosigmoid polyps x 3 2. Mild sigmoid diverticulosis 3. Grade 2 internal hemorrhoids Plan: I will follow-up the polyp histology and recommend repeat surveillance colonoscopy again in 7 to 10 years based upon whether these are adenomatous or hyperplastic polyps. I would encourage a fiber bowel regimen (combined MiraLAX plus Citrucel) on a long-term daily maintenance basis.
[2025-05-29 14:09] VITALS: BP 88/56; PULSE 71; RESP 18; TEMP 36.4; O2SAT 96
[2025-05-29 14:19] VITALS: BP 91/58; PULSE 62; O2SAT 95
[2025-05-29 14:29] VITALS: BP 93/58; PULSE 60; O2SAT 96
[2025-05-29 14:49] VITALS: BP 118/67; PULSE 64; RESP 20; O2SAT 98
[2025-06-01 15:22] LABS: Interpretation Notes (.); Lactase 16.78 (>/= 14.0); Maltase 233.55 (>/= 110.0); Palatinase 12.71 (>/= 8.5); Reference Notes (.); Sucrase 55.62 (>/= 25.0)
== END 2025-05-29 14:49 | disposition home or self-care (01) ==
PROVIDERS: PCP Nurse Practitioner Family; Visit Provider Internal Medicine Gastroenterology
PROC: 0DJ08ZZ Inspection of Upper Intestinal Tract, Via Natural or Artificial Opening Endoscopic (ICD-10-PCS; CPT 45378; principal; 2025-05-29 13:00)
DX: Z12.11 Encounter for screening for malignant neoplasm of colon (principal); D12.5 Benign neoplasm of sigmoid colon; K57.30 Diverticulosis of large intestine without perforation or abscess without bleeding; K64.1 Second degree hemorrhoids; K21.9 Gastro-esophageal reflux disease without esophagitis; K44.9 Diaphragmatic hernia without obstruction or gangrene; K29.50 Unspecified chronic gastritis without bleeding; Z86.0100 Personal history of colon polyps, unspecified; F17.290 Nicotine dependence, other tobacco product, uncomplicated; Z79.899 Other long term (current) drug therapy
CPT/HCPCS: 43239; 45385; J2003; J2704; J7120